=== PATIENT | female | born 1990 | race Hispanic/Latino ===

== ENCOUNTER 2023-10-04 19:22 | Day surgery (SDC) | payer OTHER, MEDICAID ==
[2023-10-04 19:42] VITALS: BMI 28.3
[2023-10-04] MEDS ORDERED: hydrALAZINE 20 MG/ML VIAL SLOW IVP PRN (20:13)
[2023-10-04 21:48] LABS: HIV (1/2) Antibody/Antigen Non-Reactive (NonReactive); HIV 1/2 INDEX 0.12 S/CO (<1.00)
[2023-10-04 21:50] LABS: Syphilis Antibody Nonreactive (Nonreactive); Syphilis Antibody Index 0.02 S/CO (<1.00 Non-Reactive)
[2023-10-04 22:37] LABS: Amphetamine Not Detected (NotDetected); Barbiturates Screen Not Detected (NotDetected); Benzodiazepine Screen Not Detected (NotDetected); Cocaine Metabolite Screen Not Detected (NotDetected); Methadone Not Detected (NotDetected); Methamphetamine Not Detected (NotDetected); Opiate Screen Not Detected (NotDetected); Oxycodone Screen Not Detected (NotDetected); Phencyclidine (PCP) Not Detected (NotDetected); THC/Cannabinoid Screen Detected (NotDetected); Tricyclic Screen Not Detected (NotDetected)
[2023-10-05 12:39] LABS: HBSAB Concentration Less than 8.00 mIU/mL; Hep B Surf AB NONREACTIVE (NonReactive)
== END 2023-10-05 00:32 | disposition home or self-care (01) ==
LOC: CSHLD/OP 19:22
PROVIDERS: ATTEND Obstetrics & Gynecology
DX: O99.891 Other specified diseases and conditions complicating pregnancy (principal); R10.2 Pelvic and perineal pain; O09.33 Supervision of pregnancy with insufficient antenatal care, third trimester; O99.613 Diseases of the digestive system complicating pregnancy, third trimester; K42.9 Umbilical hernia without obstruction or gangrene; O47.03 False labor before 37 completed weeks of gestation, third trimester; O71.6 Obstetric damage to pelvic joints and ligaments; Z88.8 Allergy status to other drugs, medicaments and biological substances; Z79.899 Other long term (current) drug therapy; Z3A.34 34 weeks gestation of pregnancy
CPT/HCPCS: 36415; 76816; 76856; 80053; 80306; 81001; 85025; 86706; 86762; 86780; 86850; 86900; 86901; 87389; 93976; 96360; 96361; 99285

== ENCOUNTER 2023-10-31 19:08 | Inpatient (IN) | payer MEDICAID, OTHER ==
[2023-10-31 19:26] VITALS: BMI 25.7
[2023-10-31] MEDS ORDERED: Tranexamic Acid 1,000 MG/10 ML VIAL IVP PRN (19:32)
[2023-10-31] MEDS ORDERED: hydrALAZINE 20 MG/ML VIAL SLOW IVP PRN ×2 (19:32→22:08)
[2023-10-31] MEDS ORDERED: Diphenoxylate HCl/Atropine Tablet PO PRN (19:32)
[2023-10-31] MEDS ORDERED: Ibuprofen 800 MG TAB PO PRN (19:32)
[2023-10-31] MEDS ORDERED: Methylergonovine 0.2 MG/ML VIAL IM PRN (19:32)
[2023-10-31] MEDS ORDERED: Acetaminophen 500 MG TAB PO PRN (19:32)
[2023-10-31] MEDS ORDERED: Misoprostol 200 MCG TAB PR PRN (19:32)
[2023-10-31] MEDS ORDERED: Ondansetron PF 4 MG/2 ML Vial IVP PRN ×3 (19:32→22:08)
[2023-10-31] MEDS ORDERED: Carboprost 250 MCG/ML AMP IM PRN (19:32)
[2023-10-31] MEDS ORDERED: Lidocaine 1% (PF) 30 ML VIAL SC PRN (19:32)
[2023-10-31] MEDS ORDERED: Promethazine HCl 25 MG/ML VIAL IM PRN ×3 (19:32→22:08)
[2023-10-31] MEDS ORDERED: Lactated Ringer's 1,000 ML IV SCH (19:45)
[2023-10-31] MEDS ORDERED: Oxytocin 30 units/NS 500 ML 500 ML IV SCH ×2 (19:45)
[2023-10-31 20:09] LABS: Hematocrit 32.7 % (34.9-44.5); Hemoglobin 10.7 g/dL (12.0-15.5); Mean Corpuscular HGB CONC 32.7 g/dL (32.0-36.0); Mean Corpuscular Hemoglobin 25.1 pg (27.0-33.0); Mean Corpuscular Volume 76.6 fL (81.6-98.3); Mean Platelet Volume 11.1 fL (7.4-10.4); Platelet Count 306 10x3/uL (150-450); RBC Distribution Width 18.6 % (11.5-14.5); Red Blood Cell (RBC) Count 4.27 10x6/uL (3.90-5.03); White Blood Cell (WBC) Count 19.2 10x3/uL (3.5-10.5)
[2023-10-31] MEDS: fentaNYL/Ropivacaine Epidural 100 ML ONE (20:41)
[2023-10-31] MEDS ORDERED: Naloxone HCl 0.4 mg/ml Vial IVP PRN ×2 (20:53)
[2023-10-31] MEDS ORDERED: ePHEDrine Sulfate 50 MG/10 ML VIAL SLOW IVP PRN (20:53)
[2023-10-31] MEDS ORDERED: Moisturizing Cream (Eucerin) 113 GM JAR TOP PRN (20:53)
[2023-10-31] MEDS ORDERED: Acetaminophen 325 MG TAB PO PRN (20:53)
[2023-10-31] MEDS ORDERED: diphenhydrAMINE 50 MG/ML VIAL IVP PRN (20:53)
[2023-10-31] MEDS ORDERED: Lactated Ringer's 500 ML IV PRN (20:53)
[2023-10-31] MEDS ORDERED: fentaNYL 2 mcg/Ropivacaine 0.2% Epidural 100 ML CADD EPIDURAL SCH (21:00)
[2023-10-31] MEDS ORDERED: Communication Order-Pharmacy FS SCH (21:00)
[2023-10-31 21:44] LABS: Bilirubin Neg (Negative); Blood, Urine 10 (Negative); Clarity Clear (Clear); Glucose, Urine (Dipstick) Normal (Negative); Ketone, Urine 15 mg/dL (Negative); Leukocyte Negative (Negative); Nitrite Negative (Negative); Protein, Urine (Dipstick) Negative (Neg-Trace); Urobilinogen Normal mg/dL (Less than 2)
[2023-10-31 21:53] LABS: Amphetamine Not Detected (NotDetected); Barbiturates Screen Not Detected (NotDetected); Benzodiazepine Screen Not Detected (NotDetected); Cocaine Metabolite Screen Not Detected (NotDetected); Methadone Not Detected (NotDetected); Methamphetamine Not Detected (NotDetected); Opiate Screen Not Detected (NotDetected); Oxycodone Screen Not Detected (NotDetected); Phencyclidine (PCP) Not Detected (NotDetected); THC/Cannabinoid Screen Detected (NotDetected); Tricyclic Screen Not Detected (NotDetected)
[2023-10-31 21:59] LABS: RBC/HPF 0-3 HPF (0-3)
[2023-10-31 22:01] LABS: WBC/HPF 0-3 HPF (0-3)
[2023-10-31 22:02] LABS: Bacteria/HPF 1+ HPF (None Seen); Mucous/LPF Rare LPF (<2+); Squamous Epithelial 0-3 HPF (0-3)
[2023-10-31] MEDS ORDERED: Bisacodyl 10 MG SUPP PR PRN (22:08)
[2023-10-31] MEDS ORDERED: Lanolin Ointment 7 GM TUBE TOP PRN (22:08)
[2023-10-31] MEDS ORDERED: Milk Of Magnesia 30 ML UDCUP PO PRN (22:08)
[2023-10-31] MEDS ORDERED: Preparation H Ointment 28 GM TUBE PR PRN (22:08)
[2023-10-31] MEDS ORDERED: traMADol HCl 50 MG TAB PO PRN (22:08)
[2023-10-31] MEDS ORDERED: diphenhydrAMINE 25 MG CAP PO PRN (22:08)
[2023-10-31 23:00] LABS: HIV (1/2) Antibody/Antigen Non-Reactive (NonReactive); HIV 1/2 INDEX 0.07 S/CO (<1.00); Hep B Surf Ag - L&D Non-Reactive S/CO (NonReactive)
[2023-10-31 23:01] LABS: Syphilis Antibody Nonreactive (Nonreactive); Syphilis Antibody Index 0.02 S/CO (<1.00 Non-Reactive)
[2023-11-01] MEDS: Acetaminophen 500 MG TAB PO SCH (00:59)
[2023-11-01] MEDS: Ibuprofen 800 MG TAB PO SCH (06:07)
[2023-11-01] MEDS: Benzocaine-Menthol 82.5 ML CAN TOP PRN (07:55)
[2023-11-01] MEDS: Prenatal Vitamin 1 TAB PO SCH (07:55)
[2023-11-01] MEDS: Docusate 100 MG CAP PO SCH (07:56)
[2023-11-01 09:01] LABS: Hematocrit 29.7 % (34.9-44.5); Hemoglobin 9.4 g/dL (12.0-15.5)
[2023-11-01] MEDS: Ferrous Sulfate 325 MG TAB PO SCH (09:09)
[2023-11-01] MEDS: Calcium Carbonate 500 MG ChewTAB PO PRN (09:09)
[2023-11-01] MEDS: Boostrix 0.5 ML (Tdap) VIAL (>/=7 yrs of age) IM ONE (14:20)
[2023-11-01 20:30] VITALS: TEMP 98.1
[2023-11-02 09:25] VITALS: BP 117/69
== END 2023-11-02 15:40 | disposition home or self-care (01) | DRG 806 ==
LOC: CSHLD/OP 19:08 → CSHLD 19:33 → CSHPP 11-01 00:28
PROVIDERS: ADMIT Obstetrics & Gynecology; ATTEND Obstetrics & Gynecology
PROC: 10E0XZZ Delivery of Products of Conception, External Approach (ICD-10-PCS; principal; 2023-10-31)
DX: O99.314 Alcohol use complicating childbirth (principal); O99.324 Drug use complicating childbirth; Z37.0 Single live birth; F10.90 Alcohol use, unspecified, uncomplicated; Z3A.38 38 weeks gestation of pregnancy; F12.90 Cannabis use, unspecified, uncomplicated
CPT/HCPCS: 36415; 51702; 80306; 80307; 81001; 85014; 85018; 85027; 86762; 86780; 86850; 86900; 86901; 87340; 87389; 99285